=== PATIENT | female | born 1940 | race Two or more races ===

== ENCOUNTER 2017-10-11 07:15 | Outpatient (CLI) | payer OTHER ==
[~2017-10-11 07:15] MED LIST: CATAFLAM50 MG PO; SYNTHROID125 MCG PO
== END 2017-10-11 07:41 | disposition home or self-care (01) ==
LOC: LAB 07:15
DX: I10 Essential (primary) hypertension (principal); E78.89 Other lipoprotein metabolism disorders; E55.9 Vitamin D deficiency, unspecified; M89.9 Disorder of bone, unspecified; M17.11 Unilateral primary osteoarthritis, right knee; I73.89 Other specified peripheral vascular diseases; E03.8 Other specified hypothyroidism; I50.89 Other heart failure

== ENCOUNTER 2017-12-29 07:31 | Outpatient (CLI) | payer OTHER | END 2017-12-29 07:39 | disposition home or self-care (01) | LOC: LAB 07:31 | DX: I10 Essential (primary) hypertension (principal); E55.9 Vitamin D deficiency, unspecified; M17.11 Unilateral primary osteoarthritis, right knee; E03.8 Other specified hypothyroidism; E78.89 Other lipoprotein metabolism disorders; M89.8X8 Other specified disorders of bone, other site; I73.89 Other specified peripheral vascular diseases; I50.89 Other heart failure ==

== ENCOUNTER 2018-02-02 10:31 | Outpatient (CLI) | payer OTHER | END 2018-02-02 17:09 | disposition home or self-care (01) | LOC: NUCLEAR 10:31 | DX: M81.0 Age-related osteoporosis without current pathological fracture (principal); E78.89 Other lipoprotein metabolism disorders; E55.9 Vitamin D deficiency, unspecified; M89.9 Disorder of bone, unspecified; M17.11 Unilateral primary osteoarthritis, right knee ==

== ENCOUNTER → 2018-03-27 | Outpatient (CLI) | payer OTHER | END | disposition home or self-care (01) | LOC: LAB 08:00 | DX: E78.89 Other lipoprotein metabolism disorders (principal); E55.9 Vitamin D deficiency, unspecified; M89.8X8 Other specified disorders of bone, other site; M17.11 Unilateral primary osteoarthritis, right knee; I73.89 Other specified peripheral vascular diseases; I50.89 Other heart failure; E03.8 Other specified hypothyroidism; I11.9 Hypertensive heart disease without heart failure; M81.0 Age-related osteoporosis without current pathological fracture; Z13.820 Encounter for screening for osteoporosis ==

== ENCOUNTER 2018-08-02 07:37 | Outpatient (CLI) | payer OTHER | END 2018-08-02 08:13 | disposition home or self-care (01) | LOC: LAB 07:37 | DX: E03.8 Other specified hypothyroidism (principal); I10 Essential (primary) hypertension ==

== ENCOUNTER 2018-10-03 07:29 | Outpatient (CLI) | payer OTHER | END 2018-10-03 07:45 | disposition home or self-care (01) | LOC: LAB 07:29 | DX: M81.0 Age-related osteoporosis without current pathological fracture (principal); I73.89 Other specified peripheral vascular diseases; E03.8 Other specified hypothyroidism; E55.9 Vitamin D deficiency, unspecified; E46 Unspecified protein-calorie malnutrition ==

== ENCOUNTER 2018-11-15 08:24 | Outpatient (CLI) | payer OTHER | END 2018-11-15 15:00 | disposition home or self-care (01) | LOC: LAB 08:24 | DX: M81.0 Age-related osteoporosis without current pathological fracture (principal); I73.89 Other specified peripheral vascular diseases; E03.8 Other specified hypothyroidism; E55.9 Vitamin D deficiency, unspecified; E46 Unspecified protein-calorie malnutrition ==

== ENCOUNTER 2019-01-17 07:31 | Outpatient (CLI) | payer OTHER | END 2019-01-17 07:37 | disposition home or self-care (01) | LOC: LAB 07:31 | DX: E03.8 Other specified hypothyroidism (principal); E46 Unspecified protein-calorie malnutrition; I11.9 Hypertensive heart disease without heart failure; M81.0 Age-related osteoporosis without current pathological fracture; Z13.820 Encounter for screening for osteoporosis; I50.89 Other heart failure; I73.89 Other specified peripheral vascular diseases; K21.9 Gastro-esophageal reflux disease without esophagitis; M17.11 Unilateral primary osteoarthritis, right knee; M54.5 Low back pain; E78.89 Other lipoprotein metabolism disorders; E55.9 Vitamin D deficiency, unspecified; M89.8X8 Other specified disorders of bone, other site; Z12.11 Encounter for screening for malignant neoplasm of colon ==

== ENCOUNTER 2019-05-31 07:10 | Outpatient (CLI) | payer OTHER | END 2019-05-31 08:33 | disposition home or self-care (01) | LOC: LAB 07:10 | DX: I11.9 Hypertensive heart disease without heart failure (principal); M81.0 Age-related osteoporosis without current pathological fracture; Z13.820 Encounter for screening for osteoporosis; I73.89 Other specified peripheral vascular diseases; K21.9 Gastro-esophageal reflux disease without esophagitis; M17.11 Unilateral primary osteoarthritis, right knee; M54.5 Low back pain; E03.8 Other specified hypothyroidism; E78.9 Disorder of lipoprotein metabolism, unspecified; E55.9 Vitamin D deficiency, unspecified; Z12.11 Encounter for screening for malignant neoplasm of colon; E46 Unspecified protein-calorie malnutrition; I50.89 Other heart failure ==

== ENCOUNTER 2019-09-27 08:47 | Outpatient (CLI) | payer OTHER | END 2019-09-27 15:00 | disposition home or self-care (01) | LOC: LAB 08:47 | DX: I11.9 Hypertensive heart disease without heart failure (principal); E46 Unspecified protein-calorie malnutrition; M81.0 Age-related osteoporosis without current pathological fracture; Z13.820 Encounter for screening for osteoporosis; I50.89 Other heart failure; I73.89 Other specified peripheral vascular diseases; K21.9 Gastro-esophageal reflux disease without esophagitis; M17.11 Unilateral primary osteoarthritis, right knee; M54.5 Low back pain; E03.8 Other specified hypothyroidism; E78.89 Other lipoprotein metabolism disorders; E55.9 Vitamin D deficiency, unspecified; M89.8X8 Other specified disorders of bone, other site; Z12.11 Encounter for screening for malignant neoplasm of colon ==

== ENCOUNTER → 2019-10-24 07:26 | Outpatient (CLI) | payer OTHER | END | disposition home or self-care (01) | LOC: LAB 07:26 | DX: I11.9 Hypertensive heart disease without heart failure (principal); E46 Unspecified protein-calorie malnutrition; M81.0 Age-related osteoporosis without current pathological fracture; Z13.820 Encounter for screening for osteoporosis; I50.89 Other heart failure; I73.9 Peripheral vascular disease, unspecified; K21.9 Gastro-esophageal reflux disease without esophagitis; M17.11 Unilateral primary osteoarthritis, right knee; M54.5 Low back pain; E03.8 Other specified hypothyroidism; E78.89 Other lipoprotein metabolism disorders; E55.9 Vitamin D deficiency, unspecified; M89.8X8 Other specified disorders of bone, other site; Z12.11 Encounter for screening for malignant neoplasm of colon ==

== ENCOUNTER → 2021-08-13 | Outpatient (CLI) | payer OTHER | END | disposition home or self-care (01) | LOC: NUCLEAR 12:21 | PROVIDERS: ATTEND Internal Medicine | DX: M81.0 Age-related osteoporosis without current pathological fracture (principal); M54.59 Other low back pain; M17.11 Unilateral primary osteoarthritis, right knee ==

== ENCOUNTER 2021-12-30 08:00 | Outpatient (CLI) | payer OTHER | END 2021-12-30 08:30 | disposition home or self-care (01) | LOC: PPH VACUNA 08:00 | PROVIDERS: ATTEND Emergency Medicine Pediatric Emergency Medicine | DX: Z23 Encounter for immunization (principal) ==

== ENCOUNTER 2023-08-20 12:11 | Emergency (ER) | payer OTHER ==
[~2023-08-20] VITALS: Ht 142.2 cm; Wt 45.8 kg
[2023-08-20] MEDS ORDERED: DONEPEZIL HCL10 MG PO (12:43)
[2023-08-20] MEDS ORDERED: ROSUVASTATIN CA10 MG PO (12:43)
[2023-08-20] MEDS ORDERED: RISPERIDONE0.5 MG PO (12:43)
[2023-08-20] MEDS ORDERED: LOSARTAN POTASS25 MG PO (12:43)
[2023-08-20] MEDS ORDERED: DONEPEZIL HCL5 MG PO (12:44)
[2023-08-20 15:05] LABS: ALBUMIN 3.8 gm/dL (3.4-5.0); BILIRUBIN TOTAL 0.6 mg/dL (0.3-1.2); CALCIUM 10.1 mg/dL (8.5-10.1); CREATININE SERUM 0.67 mg/dL (0.55-1.02); GFR 83.65; GLOBULINA 3.2 G/DL (2.4-3.5); POTASSIUM 3.38 mEq/L (3.5-5.1)
[2023-08-20 15:44] LABS: HEMATOCRIT 26.1 % (36.0-45.00); MEAN CORPUSCULAR HGB CONC 35.4 g/dl (32.0-36.0); PLATELET COUNT 241 K/uL (150-450); RED BLOOD COUNT 2.89 M/uL (4.00-6.00); RED CELL DISTRIBUTION WIDTH 13.2 % (11.5-14.5); URINE APPEARANCE Cloudy; URINE BILIRRUBIN Negative (NEGATIVE); URINE BLOOD Negative; URINE COLOR Yellow; URINE GLUCOSE Negative (NEGATIVE); URINE LEUKOCYTE Negative; URINE NITRATE Negative; URINE PROTEIN Negative (NEGATIVE); URINE UROBILINOGEN 0.2 E.U./dl
[2023-08-20 15:48] LABS: URINE BACTERIA 42.7 uL (0.0-1933); URINE WBC 4.3 uL (0.0-23.2)
[2023-08-20 16:10] LABS: URINE RBC 0.2 uL (0.0-20.8)
[2023-08-20 16:11] LABS: HEMOGLOBIN 9.2 g/dL (12.0-15.00); MEAN CORPUSCULAR HEMOGLOBIN 31.8 pg (27.00-32.0)
== END 2023-08-20 18:10 | disposition home or self-care (01) ==
LOC: ER 12:11
PROVIDERS: Emergency Medicine
DX: F03.90 Unspecified dementia, unspecified severity, without behavioral disturbance, psychotic disturbance, mood disturbance, and anxiety (principal); D64.9 Anemia, unspecified; R53.81 Other malaise; Z20.822 Contact with and (suspected) exposure to COVID-19